=== PATIENT | male | born 2000 | race Caucasian/White ===

== ENCOUNTER 2024-08-30 02:49 | Emergency (ER) | payer OTHER ==
[2024-08-30 03:03] VITALS: BMI 22.0
[2024-08-30 06:33] VITALS: BP 97/59; PULSE 74; RESP 15; TEMP 97.4
== END 2024-08-30 07:38 | disposition home or self-care (01) ==
LOC: JER 02:49
DX: F10.920 Alcohol use, unspecified with intoxication, uncomplicated (principal); Y90.9 Presence of alcohol in blood, level not specified
CPT/HCPCS: 99283-25